=== PATIENT | male | born 1945 | race Caucasian/White ===

== ENCOUNTER 2016-10-19 08:40 | Emergency (ER) | payer MEDICARE, OTHER ==
[2016-10-19 09:45] LABS: Urine Bacteria Absent (Absent); Urine Bilirubin Negative (Negative); Urine Glucose Negative (Negative); Urine Nitrite Negative (Negative)
[2016-10-19 09:45] LABS: Albumin 4.2 g/dL (3.2-5.2); C Reactive Protein 3.51 mg/L (< 5.00); Calcium 9.3 mg/dL (8.6-10.3); EGFR African American 66.6 (>60); EGFR Non-African American 51.8 (>60); Globulin 2.6 g/dL (2-4); Potassium 4.2 mmol/L (3.5-5.0); Total Protein 6.8 g/dL (6.4-8.9)
[2016-10-19 09:49] LABS: Hematocrit 43 % (42-52); Hemoglobin 14.6 g/dl (14.0-18.0); Mean Corpuscular HGB Conc 34 g/dl (31-36); Mean Corpuscular Hemoglobin 31 pg (27-31); Mean Corpuscular Volume 92 fL (80-94); Mean Platelet Volume 10 um3 (7.4-10.4); Red Blood Count 4.67 10^6/ul (4.0-5.4); Red Cell Distribution Width 13 % (10.5-15); White Blood Count 10.8 10^3/ul (3.5-10.8)
[2016-10-19 11:19] VITALS: BP 143/67
--- NOTE | 2016-11-15 14:49 | ED ---
Cosme Aguilar SooYoung, scribed for Jimmy Zapata MD on 10/19/16 at 1039 . GI/ HPI - HPI Summary HPI Summary: A 71 y/o M presents to ED with c/o urinary retention for past 6-8 hours. Referred from [facility]. Associated sx: abd pain, back pain, vomiting/ diarrhea (1X). Denies: leg pain, groin pain. Pt sees a urologist in [place], [place]. He and his are in [place] visiting their daughter, went to a [place] yesterday. Pt is on tamsulosin. Pt notes having had a catheter a few months ago, due to some hematuria, but it resolved and no longer needed the cath. - History of Current Complaint Chief Complaint: EDUrogenitalProblems Time Seen by Provider: 10/19/16 10:33 Stated Complaint: ABD PAIN COMMING FROM 5 STAR Hx Obtained From: Patient, Family/Wan Support Specialist - present Onset/Duration: Started Hours Ago, Atraumatic, Still Present Timing: Constant Severity: Moderate Current Severity: Moderate Pain Intensity: 6 - of 10 Associated Signs and Symptoms: Positive: Back Pain, Vomiting, Diarrhea, Abdominal Pain, Other: - neg: leg pain, groin pain - Allergy/Home Medications Allergies/Adverse Reactions: Allergies Allergy/AdvReac Type Severity Reaction Status Date / Time Penicillins Allergy Rash Verified 10/19/16 08:49 PMH/Surg Hx/FS Hx/Imm Hx Previously Healthy: No Cardiovascular History: Reports: Hx Hypercholesterolemia, Hx Hypertension, Other Cardiovascular Problems/Disorders - CABG Infectious Disease History: No Infectious Disease History: Denies: Traveled Outside the [place] in Last 30 Days - Social History Occupation: Retired Lives: With Family Alcohol Use: Daily Alcohol Amount: burbon and wine daily Hx Substance Use: No Substance Use Type: Reports: None Hx Tobacco Use: Yes Smoking Status (MU): Former Smoker Review of Systems Negative: Fever, Chills Negative: Erythema Negative: Sore Throat Negative: Chest Pain Negative: Shortness Of Breath, Cough Positive: Abdominal Pain, Vomiting, Diarrhea. Negative: Nausea Positive: other - pos: urinary retention; neg groin pain. Negative: dysuria, hematuria Positive: Other - pos: back pain. Negative: Edema Negative: Rash Neurological: Other - neg: dizziness All Other Systems Reviewed And Are Negative: Yes Physical Exam - Summary Physical Exam Summary: Constitutional: Well-developed, Well-nourished, Alert. (-) Distressed Skin: Warm, Dry HENT: Normocephalic; Atraumatic Eyes: Conjunctiva normal Neck: Musculoskeletal ROM normal neck. (-) JVD, (-) Stridor, (-) Tracheal deviation Cardio: Rhythm regular, rate normal, Heart sounds normal; Intact distal pulses; The pedal pulses are 2+ and symmetric. Radial pulses are 2+ and symmetric. (-) Murmur Pulmonary/Chest wall: Effort normal. (-) Respiratory distress, (-) Wheezes, (-) Rales Abd: Soft, (-) Tenderness, (-) Distension, (-) Guarding, (-) Rebound Musculoskeletal: (-) Edema Lymph: (-) Cervical adenopathy Neuro: Alert, Oriented x3 Psych: Mood and affect Normal Triage Information Reviewed: Yes Vital Signs On Initial Exam: Initial Vitals Temp Pulse Resp BP Pulse Ox 97.8 F 66 17 174/91 99 10/19/16 08:47 10/19/16 08:47 10/19/16 08:47 10/19/16 08:47 10/19/16 08:47 Vital Signs Reviewed: Yes - Matt Coma Scale Coma Scale Total: 15 Diagnostics - Vital Signs Vital Signs Temp Pulse Resp BP Pulse Ox 10/19/16 09:30 67 134/68 95 10/19/16 09:07 64 98 10/19/16 09:05 152/70 10/19/16 08:49 97.8 F 62 17 174/91 99 10/19/16 08:47 97.8 F 66 17 174/91 99 - Laboratory Lab Results: Lab Results 10/19/16 10/19/16 10/19/16 Range/Units 09:00 09:15 09:15 WBC 10.8 (3.5-10.8) 10^3/ul RBC 4.67 (4.0-5.4) 10^6/ul Hgb 14.6 (14.0-18.0) g/dl Hct 43 (42-52) % MCV 92 (80-94) fL MCH 31 (27-31) pg MCHC 34 (31-36) g/dl RDW 13 (10.5-15) % Plt Count 150 (150-450) 10^3/ul MPV 10 (7.4-10.4) um3 Neut % (Auto) 87.4 H (38-83) % Lymph % (Auto) 6.1 L (25-47) % [place] % (Auto) 6.2 (1-9) % Eos % (Auto) 0.1 (0-6) % Baso % (Auto) 0.2 (0-2) % Absolute Neuts (auto) 9.4 H (1.5-7.7) 10^3/ul Absolute Lymphs (auto) 0.7 L (1.0-4.8) 10^3/ul Absolute Monos (auto) 0.7 (0-0.8) 10^3/ul Absolute Eos (auto) 0 (0-0.6) 10^3/ul Absolute Basos (auto) 0 (0-0.2) 10^3/ul Absolute Nucleated RBC 0.02 10^3/ul Nucleated RBC % 0.2 Sodium 136 (133-145) mmol/L Potassium 4.2 (3.5-5.0) mmol/L Chloride 105 (101-111) mmol/L Carbon Dioxide 24 (22-32) mmol/L Anion Gap 7 (2-11) mmol/L BUN 23 (6-24) mg/dL Creatinine 1.35 H (0.67-1.17) mg/dL Est GFR ( Amer) 66.6 (>60) Est GFR (Non-Af Amer) 51.8 (>60) BUN/Creatinine Ratio 17.0 (8-20) Glucose 146 H (70-100) mg/dL Lactic Acid (0.5-2.0) mmol/L Calcium 9.3 (8.6-10.3) mg/dL Total Bilirubin 1.00 (0.2-1.0) mg/dL AST 19 (13-39) U/L ALT 13 (7-52) U/L Alkaline Phosphatase 47 (34-104) U/L C-Reactive Protein 3.51 (< 5.00) mg/L Total Protein 6.8 (6.4-8.9) g/dL Albumin 4.2 (3.2-5.2) g/dL Globulin 2.6 (2-4) g/dL Albumin/Globulin Ratio 1.6 (1-3) Lipase 20 (11.0-82.0) U/L Urine Color Yellow Urine Appearance Clear Urine pH 5.0 (5-9) Ur Specific Melvin 1.009 L (1.010-1.030) Urine Protein Negative (Negative) Urine Ketones Negative (Negative) Urine Blood 3+ H (Negative) Urine Nitrate Negative (Negative) Urine Bilirubin Negative (Negative) Urine Urobilinogen Negative (Negative) Ur Leukocyte Esterase Negative (Negative) Urine WBC (Auto) Absent (Absent) Urine RBC (Auto) 2+(6-10/hpf) H (Absent) Urine Bacteria Absent (Absent) Urine Glucose Negative (Negative) 10/19/16 Range/Units 09:15 WBC (3.5-10.8) 10^3/ul RBC (4.0-5.4) 10^6/ul Hgb (14.0-18.0) g/dl Hct (42-52) % MCV (80-94) fL MCH (27-31) pg MCHC (31-36) g/dl RDW (10.5-15) % Plt Count (150-450) 10^3/ul MPV (7.4-10.4) um3 Neut % (Auto) (38-83) % Lymph % (Auto) (25-47) % [place] % (Auto) (1-9) % Eos % (Auto) (0-6) % Baso % (Auto) (0-2) % Absolute Neuts (auto) (1.5-7.7) 10^3/ul Absolute Lymphs (auto) (1.0-4.8) 10^3/ul Absolute Monos (auto) (0-0.8) 10^3/ul Absolute Eos (auto) (0-0.6) 10^3/ul Absolute Basos (auto) (0-0.2) 10^3/ul Absolute Nucleated RBC 10^3/ul Nucleated RBC % Sodium (133-145) mmol/L Potassium (3.5-5.0) mmol/L Chloride (101-111) mmol/L Carbon Dioxide (22-32) mmol/L Anion Gap (2-11) mmol/L BUN (6-24) mg/dL Creatinine (0.67-1.17) mg/dL Est GFR ( Amer) (>60) Est GFR (Non-Af Amer) (>60) BUN/Creatinine Ratio (8-20) Glucose (70-100) mg/dL Lactic Acid 1.5 (0.5-2.0) mmol/L Calcium (8.6-10.3) mg/dL Total Bilirubin (0.2-1.0) mg/dL AST (13-39) U/L ALT (7-52) U/L Alkaline Phosphatase (34-104) U/L C-Reactive Protein (< 5.00) mg/L Total Protein (6.4-8.9) g/dL Albumin (3.2-5.2) g/dL Globulin (2-4) g/dL Albumin/Globulin Ratio (1-3) Lipase (11.0-82.0) U/L Urine Color Urine Appearance Urine pH (5-9) Ur Specific Melvin (1.010-1.030) Urine Protein (Negative) Urine Ketones (Negative) Urine Blood (Negative) Urine Nitrate (Negative) Urine Bilirubin (Negative) Urine Urobilinogen (Negative) Ur Leukocyte Esterase (Negative) Urine WBC (Auto) (Absent) Urine RBC (Auto) (Absent) Urine Bacteria (Absent) Urine Glucose (Negative) Result Diagrams: 10/19/16 09:15 10/19/16 09:15 Lab Statement: Any lab studies that have been ordered have been reviewed, and results considered in the medical decision making process. GIGU Course/Dx - Course Course Of Treatment: Pt is a 71 y/o M presenting with urinary retention for past 6-8 hours. Associated sx: abd pain, back pain, vomiting/diarrhea (1X). Denies: leg pain, groin pain. Pt sees a urologist in [place]. Pt is on tamsulosin. 1,000 mL out from ED catheter. Creatinine is 1.35. UA results show 3+ blood, 2+ RBC, 1.009 specific gravity. D/C home, f/u with local urologist, discussed keeping catheter in place until seen by uro. - Diagnoses Provider Diagnoses: Acute urinary retention, Enlarged prostate Discharge - Discharge Plan Condition: Stable Disposition: HOME Patient Education Materials: [place] Catheter Placement and Care (ED), Urinary Retention in Men (ED), Benign Prostatic Hypertrophy (ED) Referrals: Non Staff,Doctor [Primary Care Provider] - Additional Instructions: As we discussed, follow up with your urologist in [place] this week. Keep the catheter in place. Please return to the ED if you experience new or worsening symptoms. The documentation as recorded by the Cosme thayer SooYoung accurately reflects the service I personally performed and the decisions made by me, Jimmy Zapata MD.
== END 2016-10-19 11:36 | disposition home or self-care (01) ==
LOC: ED 08:40
DX: N40.1 Benign prostatic hyperplasia with lower urinary tract symptoms (principal); R33.8 Other retention of urine; R11.10 Vomiting, unspecified; R19.7 Diarrhea, unspecified; Z88.0 Allergy status to penicillin; I10 Essential (primary) hypertension; E78.00 Pure hypercholesterolemia, unspecified; Z95.1 Presence of aortocoronary bypass graft; Z87.891 Personal history of nicotine dependence
CPT/HCPCS: 36415; 80053; 81003; 81015; 83605; 83690; 85025; 86140; 99283

== ENCOUNTER 2017-01-11 11:24 | Emergency (ER) | payer MEDICARE, OTHER ==
--- NOTE | 2017-01-11 11:37 | UC ---
Skin Complaint HPI - HPI Summary HPI Summary: 72 YEAR OLD MALE PRESENTS WITH COMPLAINS OF RASH ON HIS LEGS AND STOMACH. - History of Current Complaint Time Seen by Provider: 01/11/17 11:37 Stated Complaint: RASH Hx Obtained From: Patient Onset/Duration: Lasting Days Onset Severity: Moderate Current Severity: Moderate - Allergy/Home Medications Allergies/Adverse Reactions: Allergies Allergy/AdvReac Type Severity Reaction Status Date / Time Iodine Allergy Rash Verified 01/11/17 11:46 Penicillins Allergy Rash Verified 01/11/17 11:46 Home Medications: Home Medications Aspirin [Aspirin 81 MG TAB] 01/11/17 [History] Atenolol TAB* [Tenormin TAB* 25 MG] 01/11/17 [History] Atorvastatin* [Lipitor 10 MG*] 01/11/17 [History] Losartan TAB* [Cozaar TAB*] 01/11/17 [History] Tamsulosin CAP* [Flomax CAP*] 01/11/17 [History] Review of Systems Constitutional: Negative Skin: Rash Eyes: Negative ENT: Negative Respiratory: Negative Cardiovascular: Negative Gastrointestinal: Negative Genitourinary: Negative Motor: Negative Neurovascular: Negative Musculoskeletal: Negative Neurological: Negative Psychological: Negative All Other Systems Reviewed And Are Negative: Yes PMH/Surg Hx/FS Hx/Imm Hx Previously Healthy: Yes - Social History Alcohol Use: Daily Alcohol Amount: burbon and wine daily Substance Use Type: None Smoking Status (MU): Former Smoker Physical Exam Triage Information Reviewed: Yes Eye Exam: Normal ENT Exam: Normal Dental Exam: Normal Neck exam: Normal Neck: Positive: 1 Respiratory Exam: Normal Cardiovascular Exam: Normal Abdominal Exam: Normal Musculoskeletal Exam: Normal Neurological Exam: Normal Psychological Exam: Normal Skin: Positive: rashes Course/Dx - Diagnoses Provider Diagnoses: RASH Discharge - Discharge Plan Condition: Stable Disposition: HOME Prescriptions: Triamcinolone 0.1% CREAM (NF) [Kenalog 0.1% Cream (NF)] 1 applic TOPICAL TID PRN #90 gm PRN Reason: Hives predniSONE TAB* [Deltasone TAB*] 40 mg PO DAILY #10 tab Patient Education Materials: Urticaria (ED), Acute Rash (ED) Referrals: Non Staff,Doctor [Medical Doctor] -
[2017-01-11 11:52] VITALS: BP 158/99
== END 2017-01-11 12:15 | disposition home or self-care (01) ==
LOC: UCEAST 11:24
DX: R21 Rash and other nonspecific skin eruption (principal); Z88.0 Allergy status to penicillin; Z79.82 Long term (current) use of aspirin
CPT/HCPCS: 99212; G0463